=== PATIENT | female | born 1980 | race Caucasian/White ===

== ENCOUNTER 2017-09-08 11:15 | Emergency (ER) | payer OTHER ==
[~2017-09-08] VITALS: Ht 154.9 cm; Wt 62.6 kg
[~2017-09-08 11:15] MED LIST: ACCUNEB SO1.25 MG/1; ACETAMINOPHEN-1 EAC1 PO; AZITHROMYCIN 2250 MG PO; CIPROFLOXACIN500 M1 PO; CITRATE OF MAG296 ML PO; CLEOCIN HCL150 MG PO; FLAGYL500 MG PO; HYDROCODON-ACE1 EAC7 PO; HYDROCODONE-AP1 EAC6 PO; HYDROCODONE-APA10 ML PO; IBUPROFEN 800800 M1 PO; IBUPROFEN 800800 MG PO; MULTIVITAMINS1 EAC7; NOHOMEMEDICATIONS; NORCO 5-325 TA1 EACH PO; ONDANSETRON HCL4 M2 PO; PAXIL40 MG; PROBIOTIC1 EAC1 PO; PYRIDIUM200 MG PO; ROBAXIN 750 MG750 M1 PO; TOBRASOL5 ML OP; TRAMADOL 50 MG50 MG PO; TRINATE TABLET1 TAB; VENTOLIN HFA INH8 GM IH; ZANTAC 150MG T150 M1 PO; ZOFRAN ODT4 MG SUBLING; ZYRTEC10 M2 PO
[2017-09-08] MEDS ORDERED: PROZAC20 MG PO (11:24)
[2017-09-08 11:59] LABS: HEMATOCRIT 39.8 % (37.0-47.0); HEMOGLOBIN 13.6 gm/dL (12.0-15.0); MCH 31.5 pg (26.0-34.0); MCHC 34.3 g/dL (28.0-37.0); MPV 8.4 fl. (7.2-11.1); NUCLEATED RBCS 0 /100WBC; PLATELET COUNT* 185 thou/uL (150-400); RBC 4.32 mil/uL (4.20-5.00); RDW-CV 12.5 % (10.5-14.5); WBC 14.3 thou/uL (4.0-11.0)
[2017-09-08 12:05] LABS: URINE BILIRUBIN NEGATIVE (Negative); URINE BLOOD NEGATIVE (Negative); URINE CLARITY CLEAR; URINE COLOR YELLOW; URINE GLUCOSE-RANDOM NEGATIVE (Negative); URINE KETONES NEGATIVE (Negative); URINE LEUKOCYTES-REFLEX NEGATIVE (Negative); URINE NITRITE-REFLEX NEGATIVE (Negative); URINE PROTEIN NEGATIVE (Negative); URINE UROBILINOGEN 0.2 E.U./dl (0.2-1.0)
[2017-09-08 12:12] LABS: CREATININE 0.7 mg/dL (0.6-1.3); POTASSIUM 3.6 mmol/L (3.5-5.1)
[2017-09-08 12:16] LABS: ALBUMIN 3.3 g/dL (3.4-5.0); TOTAL BILIRUBIN 1.3 mg/dL (<0.1-1.0); TOTAL PROTEIN 6.5 g/dL (6.4-8.2)
[2017-09-08 12:31] LABS: ABSOLUTE MONOCYTES 0.1 thou/uL (0.0-1.2); ABSOLUTE NEUTROPHILS 14.2 thou/uL (1.6-8.1); PLATELET ESTIMATE ADEQUATE
[2017-09-08] MEDS ORDERED: ZOFRAN ODT4 MG PO (13:39)
[2017-09-08] MEDS ORDERED: MEDI-MECLIZINE25 MG PO (13:43)
[2017-09-08] MEDS ORDERED: TORADOL 10 MG T10 MG PO (13:43)
[2017-09-08 14:16] VITALS: BP 95/59
--- NOTE | 2017-09-09 17:17 | EKG ---
[place] [address] ELECTROCARDIOGRAM REPORT Name: LANDON KEY [id number] Admission: 09/08/17 Attend Phys: Discharge: 09/08/17 Date of : 78 Report #: [id number] THIS REPORT FOR: //name// [facility] ED Test Date: 2017-09-08 Test Time: 11:20:04 Pat Name: LANDON KEY Department: Room: Gender: F [employer] Drawer: : 1980 Requested By: Steph Montana Order Number: [id number] Maria G MD: Satnam Mccabe Measurements Intervals [place] Rate: 80 P: 70 NH: 121 QRS: 84 QRSD: 90 T: 48 QT: 378 QTc: 436 Interpretive Statements Sinus rhythm Compared to ECG 11/16/2014 08:15:43 No significant changes Electronically Signed On 09-09-2017 17:17:47 REFRIGERATOR REPAIRMAN by Satnam Mccabe [email or web address] <ELECTRONICALLY SIGNED> By: Satnam Mccabe MD, [facility] 09/09/17 1717 1120 1120 Satnam Mccabe MD, FACC /EPI
== END 2017-09-08 14:27 | disposition home or self-care (01) ==
LOC: M.ERS 11:15
PROVIDERS: Physician Assistant
DX: R11.2 Nausea with vomiting, unspecified (principal); R19.7 Diarrhea, unspecified; F42.9 Obsessive-compulsive disorder, unspecified; G89.29 Other chronic pain; M54.9 Dorsalgia, unspecified; F17.210 Nicotine dependence, cigarettes, uncomplicated

== ENCOUNTER 2017-09-16 22:41 | Emergency (ER) | payer OTHER ==
[~2017-09-16] VITALS: Ht 154.9 cm; Wt 64.4 kg
[~2017-09-16 22:41] MED LIST changes: +MEDI-MECLIZINE25 MG PO; +PROZAC20 MG PO; +TORADOL 10 MG T10 MG PO; +ZOFRAN ODT4 MG PO
[2017-09-17] MEDS ORDERED: TORADOL 10 MG T10 MG PO (00:39)
[2017-09-17] MEDS ORDERED: ZOFRAN ODT4 MG PO (00:39)
[2017-09-17] MEDS ORDERED: ZOFRAN ODT4 MG SUBLING (01:15)
[2017-09-17 01:40] VITALS: BP 102/54
== END 2017-09-17 01:40 | disposition home or self-care (01) ==
LOC: M.ERS 22:41
DX: R51 Headache (principal); M54.2 Cervicalgia; M54.9 Dorsalgia, unspecified; F17.210 Nicotine dependence, cigarettes, uncomplicated; F42.9 Obsessive-compulsive disorder, unspecified